=== PATIENT | female | born 1940 | race Caucasian/White ===

== ENCOUNTER 2020-02-23 14:44 | Emergency (ER) | payer MEDICARE, OTHER, BC ==
[~2020-02-23] VITALS: Ht 162.6 cm; Wt 63.2 kg
[2020-02-23 14:48] VITALS: Ht 162.6 cm; Wt 63.2 kg
[2020-02-23] MEDS ORDERED: LISINOPRIL10 MG PO (14:50)
[2020-02-23 16:49] LABS: BASOPHILS 0.1 % (0-2); EOSINOPHILS 0.2 % (0-7); HEMATOCRIT 44.9 % (36.0-48.0); HEMOGLOBIN 15.2 g/dL (12-16); IMMATURE GRANULOCYTES 0.2 % (0-5); LYMPHOCYTES 12.8 % (15-50); MCH 30.4 pg (26.0-34.0); MCHC 33.9 g/dL (31.0-37.0); MCV 89.8 fL (80.0-100.0); MEAN PLATELET VOLUME 10.6 fL (7.4-10.4); MONOCYTES 5.7 % (2-11); PLATELET COUNT 301 10x3/uL (130-400); RDW 13.3 % (11.5-14.5); WBC 10.4 10x3/uL (4.8-10.8)
[2020-02-23 16:56] LABS: ANION GAP 11.5 mmol/L (8-16); CALCIUM 8.9 mg/dL (8.5-10.1); CARBON DIOXIDE 30.4 mmol/L (21.0-32.0); INR 0.88 (0.85-1.17); POTASSIUM - SERUM 3.9 mmol/L (3.5-5.1); PROTIME 11.9 SECONDS (11.6-15.0)
[2020-02-23 17:03] LABS: ALBUMIN 3.9 g/dL (3.4-5.0); BILIRUBIN - TOTAL 0.42 mg/dL (0.2-1.3); PROTEIN - SERUM 7.3 g/dL (6.4-8.2)
[2020-02-23 19:14] VITALS: BP 159/87
[2020-02-26 13:18] VITALS: Ht 162.6 cm; Wt 63.2 kg
== END 2020-02-23 19:14 | disposition home or self-care (01) ==
LOC: D.ER 14:44
PROVIDERS: Family Medicine
DX: N88.8 Other specified noninflammatory disorders of cervix uteri (principal); N89.8 Other specified noninflammatory disorders of vagina; I10 Essential (primary) hypertension

== ENCOUNTER 2020-02-24 17:43 | Inpatient (IN) | payer MEDICARE, OTHER, BC ==
[~2020-02-24] VITALS: Ht 162.6 cm; Wt 63.0 kg
[~2020-02-24 17:43] MED LIST: LISINOPRIL10 MG PO
[2020-02-24 18:58] LABS: BASOPHILS 0.1 % (0-2); EOSINOPHILS 0.3 % (0-7); HEMATOCRIT 42.2 % (36.0-48.0); HEMOGLOBIN 14.1 g/dL (12-16); IMMATURE GRANULOCYTES 0.2 % (0-5); LYMPHOCYTES 11.7 % (15-50); MCH 30.1 pg (26.0-34.0); MCHC 33.4 g/dL (31.0-37.0); MEAN PLATELET VOLUME 10.8 fL (7.4-10.4); MONOCYTES 8.7 % (2-11); PLATELET COUNT 292 10x3/uL (130-400); RBC 4.69 10x6/uL (4.00-5.40); RDW 13.5 % (11.5-14.5); WBC 10.2 10x3/uL (4.8-10.8)
[2020-02-24 19:19] LABS: ANION GAP 10.6 mmol/L (8-16); CALCIUM 8.6 mg/dL (8.5-10.1); CREATININE - SERUM 1.2 mg/dL (0.6-1.3); POTASSIUM - SERUM 3.6 mmol/L (3.5-5.1)
[2020-02-24 19:22] LABS: ALBUMIN 3.6 g/dL (3.4-5.0); BILIRUBIN - TOTAL 0.32 mg/dL (0.2-1.3); PROTEIN - SERUM 6.9 g/dL (6.4-8.2)
[2020-02-24 19:50] VITALS: BP 153/90
--- NOTE | 2020-02-24 21:00 | NUR ---
RECEIVED PT TO FLOOR FROM ER VIA WHEELCHAIR. PT AMBULATORY, ALERT & ORIENTED. DENIES PAIN. MODERATE VAGINAL BLEEDING PRESENT. COLLECTED URINE SPECIMEN AND SENT TO LAB. REVIEWED HOME MEDS AND HISTORY. COMPLETE ASSESSENT PER FLOW-SHEET. PROVIDED NON-SLIP SOCKS AND GOWN. NO OTHER NEEDS. WILL REASSESS AND CONTINUE TO MONITOR.
[2020-02-24 22:39] VITALS: BP 158/70
[2020-02-24 23:39] LABS: BILIRUBIN NEGATIVE (NEGATIVE); KETONE NEGATIVE (NEGATIVE); NITRITE NEGATIVE (NEGATIVE); UROBILINOGEN NORMAL mg/dL (< 2); WHITE CELLS - URINE 0-5 HPF (0-4)
[2020-02-25] VITALS (9 sets, daily range): BP systolic 129–182; BP diastolic 59–88; BMI 23.9
[2020-02-25 06:01] LABS: BASOPHILS 0.2 % (0-2); HEMATOCRIT 40.5 % (36.0-48.0); HEMOGLOBIN 13.5 g/dL (12-16); IMMATURE GRANULOCYTES 0.3 % (0-5); LYMPHOCYTES 27.2 % (15-50); MCH 29.9 pg (26.0-34.0); MCHC 33.3 g/dL (31.0-37.0); MCV 89.8 fL (80.0-100.0); MEAN PLATELET VOLUME 11.3 fL (7.4-10.4); MONOCYTES 10.2 % (2-11); NEUTROPHILS 59.1 % (40-80); PLATELET COUNT 267 10x3/uL (130-400); RBC 4.51 10x6/uL (4.00-5.40); RDW 13.5 % (11.5-14.5)
[2020-02-25 06:12] LABS: WBC 6.1 10x3/uL (4.8-10.8)
[2020-02-25 06:38] LABS: ALBUMIN 3.2 g/dL (3.4-5.0); BILIRUBIN - TOTAL 0.47 mg/dL (0.2-1.3); CARBON DIOXIDE 25.4 mmol/L (21.0-32.0); POTASSIUM - SERUM 3.4 mmol/L (3.5-5.1); PROTEIN - SERUM 6.2 g/dL (6.4-8.2)
[2020-02-25 06:40] LABS: CREATININE - SERUM 0.8 mg/dL (0.6-1.3)
--- NOTE | 2020-02-25 08:01 | NUR ---
RESTING IN BED WITH EYES CLOSED, BREATHING EVEN AND NONLABORED, NO CURRENT S/S OF DISTRESS AT THIS TIME. IV LOCATED TO LEFT FOREARM CURRENTLY RUNNING NS @ 75ML. WILL CONT TO MONITOR.
--- NOTE | 2020-02-25 09:18 | NUR ---
DR. KENNEDY ON UNIT, ASKS IF I WILL CALL EXECUTIVE CREATIVE DIRECTOR TO HAVE THEM SCHEDULE PT FOR A VAGINAL EXAM UNDER ANESTHESIA, POSSIBLE D&C. CHA, EXECUTIVE CREATIVE DIRECTOR NOTIFIED, AND SHE WAS ALSO NOTIFIED THAT DR. KENNEDY WANTS TO BE INFORMED OF PROGRESS AND HAPPENINGS BEFORE THE PT IS ON THE TABLE, AND THAT DR. KENNEDY IS AVAILABLE NOW, AND PT IS NPO.
--- NOTE | 2020-02-25 12:00 | NUR ---
RCVED PT FROM SURGERY VIA HOSPITAL STAFF AND BED. V/S STABLE, PT ALERT AND ORIENTED. WILL CONT TO MONITOR.
[2020-02-26 05:43] VITALS: BP 161/79
[2020-02-26 05:58] LABS: BASOPHILS 0.1 % (0-2); EOSINOPHILS 0.5 % (0-7); HEMATOCRIT 39.7 % (36.0-48.0); IMMATURE GRANULOCYTES 0.2 % (0-5); MCH 29.5 pg (26.0-34.0); MCHC 32.7 g/dL (31.0-37.0); MCV 90.2 fL (80.0-100.0); MONOCYTES 9.6 % (2-11); NEUTROPHILS 72.6 % (40-80); PLATELET COUNT 293 10x3/uL (130-400); RDW 13.3 % (11.5-14.5)
[2020-02-26 06:13] LABS: WBC 8.8 10x3/uL (4.8-10.8)
[2020-02-26 06:39] LABS: ALBUMIN 3.2 g/dL (3.4-5.0); ANION GAP 10.8 mmol/L (8-16); BILIRUBIN - TOTAL 0.3 mg/dL (0.2-1.3); CARBON DIOXIDE 27.7 mmol/L (21.0-32.0); CREATININE - SERUM 1.1 mg/dL (0.6-1.3); POTASSIUM - SERUM 3.5 mmol/L (3.5-5.1); PROTEIN - SERUM 6.1 g/dL (6.4-8.2)
[2020-02-26 09:11] VITALS: BP 146/77
[2020-02-26 13:18] VITALS: Ht 162.6 cm; Wt 63.0 kg
[2020-02-26 16:04] VITALS: BP 134/76
--- NOTE | 2020-02-26 17:49 | NUR ---
0700 BEDSIDE REPORT RECEIVED AWAKE, ALERT VOICES NO COMPLAINTS AMBULATION TO BR WITHOUT COMPLICATIONS DENIES ANY VAGINAL BLEED AT THIS TIME
--- NOTE | 2020-02-26 17:52 | NUR ---
1600 STATED SCANT VAGINAL BLEED NOTED WHEN VOIDING
--- NOTE | 2020-02-26 17:52 | NUR ---
1200 APPETITE GOOD AD SANTOS IN ROOM
--- NOTE | 2020-02-26 19:30 | NUR ---
A&0 X 4, UP AD SANTOS. STATES SHE'S WAITING FOR CT, INFORMED HER IT'D LIKE BE TOMORROW SINCE IT IS SO LATE. PT EXPLAINED SHE DIDN'T WANT TO BE DISCHARGED AND TREATED OUTPATIENT DUE TO INCIDENCE OF HEAVY BLEEDING AFTER BEING SENT HOME. CURRENTLY REPORTS ONLY SPOTTING. CTM.
[2020-02-26 20:00] VITALS: BP 171/75
[2020-02-27] VITALS: BP 143/68
[2020-02-27 04:00] VITALS: BP 167/83
--- NOTE | 2020-02-27 06:51 | OP ---
PATIENT NAME: MIR BAUMANN MEDICAL RECORD: [id number] :42 LOCATION:[facility] ADMISSION DATE:02/24/20 SURGEON: CLINT KENNEDY MD DATE OF OPERATION: 02/25/2020 PREOPERATIVE DIAGNOSES: 1. Postmenopausal bleeding. 2. Abnormal ultrasound findings. POSTOPERATIVE DIAGNOSES: 1. Postmenopausal bleeding. 2. Abnormal ultrasound findings. PROCEDURES: Exam under anesthesia, hysteroscopy, dilation and curettage and endocervical curettage. FINDINGS: 1. Included a grossly normal appearing vulva, vagina and cervix. 2. Fibrotic appearing scar tissue in the endocervix. 3. Mildly enlarged endometrial cavity with multiple endometrial type polyps. SPECIMENS: Included an endocervical curetting as well as a dilation and curettage for specimens. ESTIMATED BLOOD LOSS: Minimal. PROCEDURE: The patient taken to the operating room where general anesthesia was achieved without any difficulty. The patient was then prepped and draped in normal sterile fashion in the dorsal lithotomy position in the [facility]. The patient was prepped and draped and the bladder was drained of approximately 50 cc of clear straw colored urine. A Graves speculum was placed into the vagina and no gross lesions were noted. The cervix was grasped on its anterior lip with a single tooth tenaculum. Careful survey of the cervix and vagina was performed. At this point, an endocervical curetting was performed and the patient was dilated without resistance to approximately 6 mm. The hysteroscope was then used to evaluate the endocervical canal, so was the endometrial canal. Curettage was performed in all 4 quadrants with return of obvious tissue. Only scant bleeding was noted during and after the case. The tenaculum was then removed followed by the speculum. The patient tolerated the procedure well, transferred to postanesthesia recovery stable without incident. TRANSINT:[id number] Voice Confirmation ID: [id number] DOCUMENT ID: [id number] CLINT KENNEDY MD at 0651 CC: [id number] DICTATION DATE: 02/26/20 1546 FACILITIES MAINTENANCE ASSISTANT: 02/27/20 0146 ADM IN [place] [id number] [place] [address]
[2020-02-27 08:36] VITALS: BP 167/94
[2020-02-27 09:46] LABS: BASOPHILS 1.8 % (0-2); EOSINOPHILS 0.7 % (0-7); HEMATOCRIT 44.7 % (36.0-48.0); HEMOGLOBIN 14.9 g/dL (12-16); IMMATURE GRANULOCYTES 1.1 % (0-5); LYMPHOCYTES 16.2 % (15-50); MCH 30.4 pg (26.0-34.0); MCHC 33.3 g/dL (31.0-37.0); MCV 91.2 fL (80.0-100.0); MEAN PLATELET VOLUME 11.2 fL (7.4-10.4); NEUTROPHILS 73.2 % (40-80); PLATELET COUNT 314 10x3/uL (130-400); RDW 13.5 % (11.5-14.5); WBC 7.3 10x3/uL (4.8-10.8)
--- NOTE | 2020-02-27 10:27 | NUR ---
PT ALERT X 4. BREATH SOUNDS CLEAR BILAT. PT REPORTING NO PAIN AT THIS TIME. BED LOW, CALL LIGHT IN REACH. NO OTHER NEEDS AT THIS TIME.
--- NOTE | 2020-02-27 10:27 | NUR ---
IV PLACED TO RIGHT WRIST, 20G, 1 ATTEMPT. PT TOLERATED WELL.
[2020-02-27 12:39] VITALS: BP 182/97
[2020-02-27 17:20] VITALS: BP 158/82
[2020-02-27 20:00] VITALS: BP 153/78
--- NOTE | 2020-02-27 20:00 | NUR ---
A&0 X 4. SUPINE IN BED, DENIES NEEDS, CTM.
--- NOTE | 2020-02-28 00:28 | NUR ---
I have reviewed this patient and I concur with the Shift Assessment completed by the Licensed Practical Nurse today this shift.
[2020-02-28 04:00] VITALS: BP 154/58
--- NOTE | 2020-02-28 07:54 | NUR ---
ALERT AND ORIENTED. LUNGS CLEAR BILATERALLY. HEART SOUNDS S1 AND S2 HEARD IN ALL [place] BOWEL SOUNDS ACTIVE X 4. DENIES NEEDS. BED LOW. CALL BRAR AND PERSONAL ITEMS IN REACH. WILL CONTINUE TO MONITOR.
[2020-02-28 08:50] VITALS: BP 178/83
--- NOTE | 2020-02-28 10:44 | NUR ---
RESTING IN BED. DENIES NEEDS. STATES NO RIDE UNTIL NOON FOR DISCHARGE. WILL CONTINUE TO MONITOR.
--- NOTE | 2020-02-28 12:01 | MORECARE ---
CASE MANAGEMENT DISCHARGE SUMMARY PATIENT: MIR BAUMANN UNIT: [id number] ADM DATE: 02/24/20 AGE: 79 : 41 SEX: F ROOM/BED: D.2205 AUTHOR: NORI SWEET PHYSICIAN: REFERRING PHYSICIAN: TABITHA SCANLON MD DATE OF SERVICE: 02/28/20 Discharge Plan Patient Name: MIR BAUMANN Facility: [facility]:[place] : 1940 Planned Disposition: Home or Self Care Anticipated Discharge Date: Discharge Date: Expected LOS: Initial Reviewer: [email or web address] Initial Review Date: 02/25/2020 Generated: 02/28/20 1:00 pm Patient Name: MIR BAUMANN Page [phone] at 1201 All edits/amendments must be made on the electronic document DICTATION DATE: 02/28/20 1200 OVER[place] CRANE TECHNICIAN: AYSHA 02/28/20 1200 RPT#: [id number] DC DATE: STATUS: ADM IN [facility] [address] [place] [address] END OF REPORT
--- NOTE | 2020-02-28 12:06 | NUR ---
DISCHARGE EDUCATION PROVIDED BOTH WRITTEN AND VERBAL. VERBALIZED UNDERSTANDING. DENIES FURTHER QUESTIONS. WAITING RIDE HOME.
--- NOTE | 2020-02-28 12:11 | MORECARE ---
CASE MANAGEMENT DISCHARGE SUMMARY PATIENT: MIR BAUMANN UNIT: [id number] ADM DATE: 02/24/20 AGE: 79 : 41 SEX: F ROOM/BED: D.2205 AUTHOR: MICKI,DOC PHYSICIAN: REFERRING PHYSICIAN: TABITHA SCANLON MD DATE OF SERVICE: 02/28/20 Discharge Plan Patient Name: MIR BAUMANN Facility: [facility]:[place] : 1940 Planned Disposition: Home or Self Care Anticipated Discharge Date: Discharge Date: Expected LOS: Initial Reviewer: [email or web address] Initial Review Date: 02/25/2020 Generated: 02/28/20 1:10 pm Comments DCP- Discharge Planning Updated by [email or web address]: Nury Vieira on 02/28/20 11:[address] Patient Name: MIR BAUMANN Admission Status: ER Accout number: [id number] Admission Date: 02-24-2020 : 1940 Admission Diagnosis:POSTMENOPAUSAL BLEEDING Attending: VLAD Current LOS: 4 Anticipated DC Date: Planned Disposition: Home or Self Care Primary Insurance: MEDICARE A & B Discharge Planning Comments: CM met with patient to complete initial dc planning assessment. CM educated patient on the CM role and verbal consent given by patient to complete assessment. Patient lives at home by herself where she is independent with her care. At discharge patient plans to return home and feels this is a safe discharge. CM discussed availability of home health, rehab services, and medical equipment. Her friend will be her dinkey driver home. IMM served and explained. Patient denied known discharge needs at this time. CM will continue to follow and will assist as needed with dc plans/needs Geography Teacher: Nury Vieira DCPIA - Discharge Planning Initial Assessment Updated by [email or web address]: Nury Vieira on 02/28/20 12:04 pm * Is the patient Alert and Oriented? Yes * How many steps to enter\exit or inside your home? * PCP GHISLAINE * Pharmacy [facility] * Preadmission Environment Home Alone * ADLs Independent * Equipment None * List name and contact numbers for known caregivers / representatives who currently or will assist patient after discharge: HALLEY RAND [phone] * Verbal permission to speak to the caregivers and representatives has been obtained from the patient. N/A * Community resources currently utilized None * Additional services required to return to the preadmission environment? No * Can the patient safely return to the preadmission environment? Yes * Has this patient been hospitalized within the prior 30 days at any hospital? No Coverage Notice Reviewer: [email or web address] Jeff Vieira Notice Issued Date-Time: 02/28/2020 10:50 Notice Type: IM Discharge Notice Notice Delivered To: Patient Relationship to Patient: Router Setter Name: Delivery Method: HAND - Hand Delivered Loretta Days: Prior Verbal Notification: Recipient Understood Notice: Yes Recipient Signature: Yes Med Rec Note Co-signed by Attending: Coverage Notice Comment: imm served and explained Last DP export: 02/28/20 11:01 a Patient Name: MIR BAUMANN Page [phone] at 1211 All edits/amendments must be made on the electronic document DICTATION DATE: 02/28/20 1210 SENIOR LIVING ADVISOR: AYSHA 02/28/20 1210 RPT#: [id number] DC DATE: STATUS: ADM IN [facility] [address] [place] [address] END OF REPORT
--- NOTE | 2020-02-28 12:16 | NUR ---
PATIENT DC HOME WITH ALL BELONGINGS.
--- NOTE | 2020-02-28 14:51 | MORECARE ---
CASE MANAGEMENT DISCHARGE SUMMARY PATIENT: MIR BAUMANN UNIT: [id number] ADM DATE: 02/24/20 AGE: 79 : 41 SEX: F ROOM/BED: D.2200 AUTHOR: MICKI,DOC PHYSICIAN: REFERRING PHYSICIAN: TABITHA SCANLON MD DATE OF SERVICE: 02/28/20 Discharge Plan Patient Name: MIR BAUMANN Facility: [facility]:[place] : 1940 Planned Disposition: Home or Self Care Anticipated Discharge Date: Discharge Date: 02/28/2020 Expected LOS: 0 Initial Reviewer: [email or web address] Initial Review Date: 02/25/2020 Generated: 02/28/20 3:50 pm Comments DCP- Discharge Planning Updated by [email or web address]: Nury Vieira on 02/28/20 11:[address] Patient Name: MIR BAUMANN Admission Status: ER Accout number: [id number] Admission Date: 02-24-2020 : 1940 Admission Diagnosis:POSTMENOPAUSAL BLEEDING Attending: VLAD Current LOS: 4 Anticipated DC Date: Planned Disposition: Home or Self Care Primary Insurance: MEDICARE A & B Discharge Planning Comments: CM met with patient to complete initial dc planning assessment. CM educated patient on the CM role and verbal consent given by patient to complete assessment. Patient lives at home by herself where she is independent with her care. At discharge patient plans to return home and feels this is a safe discharge. CM discussed availability of home health, rehab services, and medical equipment. Her friend will be her operator and truck driver home. IMM served and explained. Patient denied known discharge needs at this time. CM will continue to follow and will assist as needed with dc plans/needs Safety Administrator: Nury Vieira DCPIA - Discharge Planning Initial Assessment Updated by [email or web address]: Nury Vieira on 02/28/20 12:04 pm * Is the patient Alert and Oriented? Yes * How many steps to enter\exit or inside your home? * PCP GHISLAINE * Pharmacy [facility] * Preadmission Environment Home Alone * ADLs Independent * Equipment None * List name and contact numbers for known caregivers / representatives who currently or will assist patient after discharge: HALLEY RAND [phone] * Verbal permission to speak to the caregivers and representatives has been obtained from the patient. N/A * Community resources currently utilized None * Additional services required to return to the preadmission environment? No * Can the patient safely return to the preadmission environment? Yes * Has this patient been hospitalized within the prior 30 days at any hospital? No Coverage Notice Reviewer: [email or web address] Jeff Vieira Notice Issued Date-Time: 02/28/2020 10:50 Notice Type: IM Discharge Notice Notice Delivered To: Patient Relationship to Patient: Clinic Physician Name: Delivery Method: HAND - Hand Delivered Loretta Days: Prior Verbal Notification: Recipient Understood Notice: Yes Recipient Signature: Yes Med Rec Note Co-signed by Attending: Coverage Notice Comment: imm served and explained Last DP export: 02/28/20 11:11 a Patient Name: MIR BAUMANN Page [id number] at 1451 All edits/amendments must be made on the electronic document DICTATION DATE: 02/28/201449 STEEL SASH ERECTOR: AYSHA 02/28/20 145 RPT#: [id number] DC DATE:02/28/20 STATUS: DIS IN [facility] [address] [place] [address] END OF REPORT
== END 2020-02-28 13:16 | disposition home or self-care (01) | DRG 745 ==
LOC: D.ER 17:43 → D.MS 18:51
PROVIDERS: Family Medicine; Legal Medicine; Obstetrics & Gynecology; ADMIT Emergency Medicine; ATTEND Emergency Medicine
PROC: 0UDB8ZZ Extraction of Endometrium, Via Natural or Artificial Opening Endoscopic (ICD-10-PCS; principal; 2020-02-25 10:30)
DX: N95.0 Postmenopausal bleeding (principal); I10 Essential (primary) hypertension; N88.9 Noninflammatory disorder of cervix uteri, unspecified